=== PATIENT | female | born 1945 | race Caucasian/White ===

== ENCOUNTER → 2016-09-09 | Outpatient (CLI) | payer MEDICARE, OTHER ==
[2016-09-04 15:06] VITALS: BMI 93.1
[2016-09-09 15:01] VITALS: BP 163/80; PULSE 79; RESP 18; TEMP 97.8
--- NOTE | 2016-10-01 13:05 | P.PN ---
Progress Note - Text Patient seen and briefly evaluated, requesting injections in her back. Patient lives in [place], so I gave her MRI lumbar spine order and told her to make an appointment at [facility]. The patient was not charged for this visit.
== END | disposition home or self-care (01) ==
LOC: PNWHC3 13:51
PROVIDERS: ATTEND Anesthesiology
DX: M48.02 Spinal stenosis, cervical region (principal); M54.12 Radiculopathy, cervical region
CPT/HCPCS: 99211